=== PATIENT | female | born 1950 | race Caucasian/White ===

== ENCOUNTER → 2017-02-15 | Outpatient (REF) | payer MEDICARE, BC ==
[2017-02-15 15:09] LABS: BASO % 0.7 % (0.0-1.0); IMMATURE GRANULOCYTE % 0.6 % (0-0); LYMPH # 1.7 10^3/uL (1.5-4.5); LYMPH % 31.9 % (24.0-44.0); MEAN CORPUSCULAR HEMOGLOBIN 28.7 pg (27.0-33.0); MEAN CORPUSCULAR HGB CONC 31.7 g/dl (32.0-36.5); MEAN CORPUSCULAR VOLUME 90.6 fl (80.0-96.0); MONO # 0.6 10^3/uL (0.0-0.8); NEUTROPHILS % 55.8 % (36.0-66.0); PLATELET COUNT, AUTOMATED 131 10^3/uL (150-450); RED CELL DISTRIBUTION WIDTH 13.3 % (11.5-14.5); WHITE BLOOD COUNT 5.4 10^3/uL (4.0-10.0)
[2017-02-15 15:39] LABS: ALBUMIN 3.4 GM/DL (3.2-5.2); ALBUMIN/GLOBULIN RATIO 1.13 (1.00-1.93); ALKALINE PHOSPHATASE 50 U/L (45-117); ALT/SGPT 22 U/L (12-78); ANION GAP 8 MEQ/L (8-16); AST/SGOT 12 U/L (15-37); BILIRUBIN,TOTAL 0.3 MG/DL (0.2-1.0); BLOOD UREA NITROGEN 21 MG/DL (7-18); CARBON DIOXIDE LEVEL 28 MEQ/L (21-32); CHLORIDE LEVEL 107 MEQ/L (98-107); CREATININE FOR GFR 0.68 MG/DL (0.55-1.02); GLOMERULAR FILTRATION RATE > 60.0 (>45); GLUCOSE, FASTING 85 MG/DL (80-110); SODIUM LEVEL 143 MEQ/L (136-145); TOTAL PROTEIN 6.4 GM/DL (6.4-8.2)
[2017-02-15 15:45] LABS: ERYTHROCYTE SEDIMENTATION RATE 7 mm/hr (0-30)
== END ==
LOC: M LABNEURO 13:37
PROVIDERS: ATTEND Psychiatry & Neurology Neurology
DX: R25.1 Tremor, unspecified (principal); R73.01 Impaired fasting glucose

== ENCOUNTER 2024-07-07 19:31 | Inpatient (IN) | payer MEDICARE, SELFPAY ==
[~2024-07-07] VITALS: Ht 157.5 cm; Wt 74.6 kg
[2024-07-07 20:12] LABS: HEMATOCRIT 41.4 % (36.0-47.0); HEMOGLOBIN 13.3 g/dl (12.0-15.5); MEAN CORPUSCULAR HEMOGLOBIN 28.8 pg (27.0-33.0); MEAN CORPUSCULAR HGB CONC 32.1 g/dl (32.0-36.5); MEAN CORPUSCULAR VOLUME 89.6 fl (80.0-96.0); PLATELET COUNT, AUTOMATED 173 10^3/uL (150-450); RED BLOOD COUNT 4.62 10^6/uL (4.00-5.40)
[2024-07-07 20:42] LABS: ETHYL ALCOHOL (ETHANOL) 0.003 % (0.000-0.010)
[2024-07-07 20:43] LABS: CK-MB VALUE MASS 2.1 NG/ML (<3.6)
[2024-07-07 20:44] LABS: BLOOD UREA NITROGEN 25 MG/DL (9-23); CALCIUM LEVEL 8.7 MG/DL (8.3-10.6); CARBON DIOXIDE LEVEL 32 MMOL/L (20-31); CHLORIDE LEVEL 104 MMOL/L (98-107); CREATININE FOR GFR 0.82 MG/DL (0.55-1.30); GLOMERULAR FILTRATION RATE > 60.0 (>39); GLUCOSE, FASTING 119 MG/DL (74-106); SALICYLATE LEVEL < 3.0 MG/DL (<30); SODIUM LEVEL 145 MMOL/L (136-145)
[2024-07-07 20:45] LABS: CPK CREATINE PHOSPHOKINASE 103 U/L (34-145); MB/CK RELATIVE INDEX 2.03 (< OR =4)
[2024-07-07 20:55] VITALS: O2SAT 94
[2024-07-07 21:27] LABS: KETONE, URINE AUTO RFX NEGATIVE (NEGATIVE); LEUKOCYTE ESTERASE UR AUTO RFX NEGATIVE (NEGATIVE); MUCUS, URINE RFX SMALL (NEGATIVE); NITRITE, URINE AUTO RFX NEGATIVE (NEGATIVE); RBC, URINE AUTO RFX 2 /HPF (0-3); SQUAM EPITHELIAL CELL UR AURFX 0 /HPF (0-6); WBC, URINE AUTO RFX 1 /HPF (0-3)
[2024-07-07 21:48] LABS: AMPHETAMINES LEVEL URINE NEGATIVE (NEGATIVE); BARBITURATES URINE NEGATIVE (NEGATIVE); BENZODIAZEPINES URINE NEGATIVE (NEGATIVE); COCAINE METABOLITE URINE NEGATIVE (NEGATIVE); METHADONE URINE NEGATIVE (NEGATIVE); OPIATES URINE NEGATIVE (NEGATIVE); PHENCYCLIDINE URINE NEGATIVE (NEGATIVE)
[2024-07-07 21:49] LABS: CANNABINOIDS URINE NEGATIVE (NEGATIVE)
[2024-07-07] MEDS: LEVALBUTEROL 1.25MG 0.5ML CONCENTRATE NEB NEB ONE (22:21)
[2024-07-08 00:31] LABS: CK-MB VALUE MASS 2.4 NG/ML (<3.6)
[2024-07-08 00:32] LABS: MB/CK RELATIVE INDEX 2.37 (< OR =4)
[2024-07-08] MEDS ORDERED: traZODone 50 MG TAB PO PRN (03:05)
[2024-07-08] MEDS ORDERED: ACETAMINOPHEN 325 MG TAB PO PRN (03:05)
[2024-07-08] MEDS ORDERED: MOM 30ML SUSPENSION UDC PO PRN (03:05)
[2024-07-08] MEDS ORDERED: MAALOX 30 ML SUSP *UDC PO PRN (03:05)
[2024-07-08] MEDS ORDERED: LURA120T PO (03:34)
[2024-07-08] MEDS ORDERED: LURA20TA PO (03:34)
[2024-07-08] MEDS ORDERED: DIVA250T67 PO (03:34)
[2024-07-08] MEDS ORDERED: TRAZ-257 PO (03:34)
[2024-07-08] MEDS ORDERED: FURO20TA2 PO (03:34)
[2024-07-08] MEDS ORDERED: BUSP5TA PO (03:34)
[2024-07-08] MEDS ORDERED: EZET10TA21 PO (03:34)
[2024-07-08] MEDS ORDERED: ATOR1TAB19 PO (03:34)
[2024-07-08] MEDS ORDERED: DOXY-441 PO (03:34)
[2024-07-08] MEDS ORDERED: DIVA500T94 PO (03:34)
[2024-07-08] MEDS ORDERED: HOME MED LIST COMPLETE! XX SCH (03:40)
[2024-07-08 06:28] VITALS: BP 147/82; TEMP 98.2; O2SAT 94
[2024-07-08] MEDS ORDERED: LEVALBUTEROL HFA 45MCG/ACT 15GM INHALER INH PRN (09:25)
[2024-07-08] MEDS: TORSEMIDE 20 MG TAB PO SCH (09:40)
[2024-07-08] MEDS: predniSONE 20 MG TAB PO SCH (09:40)
[2024-07-08] MEDS: DIVALPROEX 250MG TAB PO SCH (10:15)
[2024-07-08] MEDS: busPIRone 5 MG TAB PO SCH (10:15)
[2024-07-08 16:13] VITALS: BP 142/69; TEMP 98.4; O2SAT 94
[2024-07-08] MEDS: LURASIDONE 20 MG TAB (LATUDA) PO SCH (18:03)
[2024-07-08] MEDS: DIVALPROEX 500 MG TAB PO SCH (21:06)
[2024-07-08] MEDS: traZODone 100 MG TAB PO SCH (21:06)
[2024-07-09 07:08] VITALS: BP 150/72; TEMP 97.4; O2SAT 94
[2024-07-09 08:45] VITALS: BP 150/72; TEMP 97.4; O2SAT 94
[2024-07-09] MEDS: DOXYCYCLINE HYCLATE 100MG TABLET PO SCH (10:11)
[2024-07-09 16:21] VITALS: BP 156/75; TEMP 98.3; O2SAT 93
[2024-07-10] MEDS: diphenhydrAMINE 25MG CAP PO PRN (00:07)
[2024-07-10] MEDS: OLANZapine ORAL DISINTEGRATING TAB 5MG PO PRN (02:10)
[2024-07-10 06:22] VITALS: BP 145/65; TEMP 97.3; O2SAT 98
[2024-07-10 15:44] VITALS: BP 142/77; TEMP 98.6; O2SAT 95
[2024-07-10 16:48] VITALS: BP 134/72
[2024-07-10] MEDS: metOLazone 5 MG TAB PO ONE (16:50)
[2024-07-10 17:34] LABS: BLOOD UREA NITROGEN 34 MG/DL (9-23); CALCIUM LEVEL 9.2 MG/DL (8.3-10.6); CARBON DIOXIDE LEVEL 32 MMOL/L (20-31); CHLORIDE LEVEL 100 MMOL/L (98-107); GLOMERULAR FILTRATION RATE > 60.0 (>39); GLUCOSE, FASTING 137 MG/DL (74-106); MAGNESIUM LEVEL 2.1 MG/DL (1.8-2.4); SODIUM LEVEL 146 MMOL/L (136-145)
[2024-07-10 17:37] VITALS: BP 118/64
[2024-07-10] MEDS: FUROSEMIDE 40 MG TAB PO ONE (17:39)
[2024-07-10] MEDS: LURASIDONE 20 MG TAB (LATUDA) PO SCH (17:43)
[2024-07-10] MEDS: DIVALPROEX 500 MG TAB PO SCH (20:14)
[2024-07-10] MEDS: POTASSIUM CHLORIDE 10MEQ SR TABLET PO SCH (20:14)
[2024-07-10] MEDS: MAGNESIUM OXIDE 400MG TAB (MAG-OX) PO SCH (20:14)
[2024-07-11 06:28] VITALS: BP 154/80; TEMP 97.8; O2SAT 99
[2024-07-11 09:20] VITALS: BP 133/65
[2024-07-11] MEDS: FUROSEMIDE 40 MG TAB PO SCH (09:22)
[2024-07-11 15:22] VITALS: BP 133/71; TEMP 98.1; O2SAT 95
[2024-07-11 16:53] LABS: ALBUMIN 3.6 G/DL (3.2-5.2); BLOOD UREA NITROGEN 30 MG/DL (9-23); CALCIUM LEVEL 9.1 MG/DL (8.3-10.6); CARBON DIOXIDE LEVEL 35 MMOL/L (20-31); CHLORIDE LEVEL 92 MMOL/L (98-107); CREATININE FOR GFR 0.89 MG/DL (0.55-1.30); GLOMERULAR FILTRATION RATE > 60.0 (>39); GLUCOSE, FASTING 117 MG/DL (74-106); POTASSIUM SERUM 3.4 MMOL/L (3.5-5.1); SODIUM LEVEL 138 MMOL/L (136-145)
[2024-07-11] MEDS: POTASSIUM CHLORIDE 10MEQ SR TABLET PO ONE (17:36)
[2024-07-12 06:32] VITALS: BP 135/64; TEMP 97.8; O2SAT 96
[2024-07-12] MEDS: POTASSIUM CHLORIDE 10MEQ SR TABLET PO SCH (09:32)
[2024-07-12] MEDS: MAGNESIUM OXIDE 400MG TAB (MAG-OX) PO SCH (09:32)
[2024-07-12 16:40] VITALS: BP 127/70; TEMP 97.8; O2SAT 96
[2024-07-13 06:42] VITALS: BP 128/58; TEMP 97.1; O2SAT 95
[2024-07-13 09:30] VITALS: BP 124/69
[2024-07-13] MEDS ORDERED: TRAZ-257 PO (13:19)
[2024-07-13] MEDS ORDERED: LURA60TA PO (13:19)
[2024-07-13] MEDS ORDERED: DIVA500T94 PO (13:19)
== END 2024-07-13 14:48 | disposition home or self-care (01) | DRG 885 ==
LOC: M ED 19:31 → EDBD 19:31 → M ED INP 07-08 03:05 → M PSY 07-08 06:10
PROVIDERS: ADMIT Psychiatry & Neurology Neurology; ATTEND Psychiatry & Neurology Neurology
DX: F25.0 Schizoaffective disorder, bipolar type (principal); F41.9 Anxiety disorder, unspecified; R25.1 Tremor, unspecified; Z79.899 Other long term (current) drug therapy; Z88.0 Allergy status to penicillin; Z88.6 Allergy status to analgesic agent; Z88.8 Allergy status to other drugs, medicaments and biological substances